=== PATIENT | male | born 1955 | race American Indian/Alaskan Native ===

== ENCOUNTER 2018-01-14 16:00 | Emergency (ER) | payer OTHER ==
[2018-01-14 16:25] LABS: Eosinophils # (Auto) 0.2 K/mm3 (0.0-0.4); Hematocrit 44.7 % (35.5-45.6); Hemoglobin 14.2 gm/dl (11.8-15.2); Lymphocytes # (Auto) 1.5 K/mm3 (1.2-5.4); Mean Corpuscular HGB Conc 32 % (32-34); Mean Corpuscular Volume 71 fl (84-94); Monocytes # (Auto) 0.4 K/mm3 (0.0-0.8); Monocytes % (Auto) 8.2 % (0.0-7.3); Platelet Count 222 K/mm3 (140-440); Red Blood Count 6.31 M/mm3 (3.65-5.03); Red Cell Distribution Width 13.6 % (13.2-15.2)
[2018-01-14 16:27] LABS: Mean Corpuscular Hemoglobin 23 pg (28-32)
[2018-01-14 16:38] LABS: Bilirubin,Urine NEG (Negative); Blood,Urine NEG (Negative); Color,Urine Colorless (Yellow); Mucus,Urine FEW /HPF; Protein,Urine <15 mg/dL mg/dL (Negative); Urobilinogen,Urine < 2.0 mg/dL (<2.0); WBC,Urine < 1.0 /HPF (0.0-6.0)
[2018-01-14 16:42] LABS: RBC,Urine < 1.0 /HPF (0.0-6.0)
[2018-01-14 17:33] LABS: BUN/Creatinine Ratio 7; Blood Urea Nitrogen 6 mg/dL (9-20); Calcium 9.1 mg/dL (8.4-10.2); Hemolysis Index 5
[2018-01-14] MEDS ORDERED: NACL 0.9% 1000 ML 1,000 ML IV ONE (17:58)
[2018-01-14] MEDS ORDERED: K-DUR PO ONE (18:00)
[2018-01-14] MEDS ORDERED: ZESTRIL PO ONE (18:01)
[2018-01-14] MEDS ORDERED: NORMODYNE IV ONE (18:43)
--- NOTE | 2018-01-14 19:11 | Emergency Department Report ---
ED General Adult HPI - General Chief complaint: Hyperglycemia Stated complaint: HIGH GLUCOSE Source: patient Mode of arrival: Ambulatory Limitations: No Limitations - History of Present Illness Initial comments: Patient has had the polys for the last few weeks. He states he went to his doctor a few months ago who told him his diabetes was well controlled although he doesn't have a history of diabetes. Apparently his son is diabetic. He came to the emergency room today for evaluation. He did not take his blood pressure medicine today. He said no recent fever or chills. Does not complain of any chest or abdominal pain or any shortness of breath. He admits to dietary indiscretion with all lot of sugary drinks. -: Gradual, week(s) Severity scale (0 -10): 0 Associated Symptoms: denies other symptoms (except as above indicated) Treatments Prior to Arrival: none - Related Data Previous Rx's Medication Instructions Recorded Last Taken Type metFORMIN [Glucophage] 500 mg PO BID #60 tablet 01/14/18 Unknown Rx Allergies Allergy/AdvReac Type Severity Reaction Status Date / Time No Known Allergies Allergy Unverified 01/14/18 16:03 ED Review of Systems ROS: Stated complaint: HIGH GLUCOSE Other details as noted in HPI Constitutional: denies: chills, fever Eyes: denies: eye pain, eye discharge, vision change ENT: denies: ear pain, throat pain Respiratory: denies: cough, shortness of breath, wheezing Cardiovascular: denies: chest pain, palpitations Endocrine: increased hunger, increased thirst, increased urine Gastrointestinal: denies: abdominal pain, nausea, diarrhea Genitourinary: frequency. denies: urgency, dysuria Musculoskeletal: denies: back pain, joint swelling, arthralgia Skin: denies: rash, lesions Neurological: denies: headache, weakness, paresthesias Psychiatric: denies: anxiety, depression Hematological/Lymphatic: denies: easy bleeding, easy bruising ED Past Medical Hx - Past Medical History Hx Hypertension: Yes - Surgical History Hx Cholecystectomy: Yes Additional Surgical History: ANKLE HERNIA - Social History Smoking Status: Never Smoker Substance Use Type: None - Medications Home Medications: Home Medications Medication Instructions Recorded Confirmed Last Taken Type metFORMIN [Glucophage] 500 mg PO BID #60 tablet 01/14/18 Unknown Rx ED Physical Exam - General Limitations: No Limitations General appearance: alert, in no apparent distress - Head Head exam: Present: atraumatic, normocephalic - Eye Eye exam: Present: normal appearance. Absent: scleral icterus - ENT ENT exam: Present: mucous membranes moist - Neck Neck exam: Present: normal inspection. Absent: tenderness, meningismus - Respiratory Respiratory exam: Present: normal lung sounds bilaterally. Absent: respiratory distress - Cardiovascular Cardiovascular Exam: Present: regular rate, normal rhythm. Absent: systolic murmur, diastolic murmur, rubs, gallop - GI/Abdominal GI/Abdominal exam: Present: soft, normal bowel sounds. Absent: distended, tenderness, guarding, rebound, rigid - Rectal Rectal exam: Present: deferred - Extremities Exam Extremities exam: Present: normal inspection - Back Exam Back exam: Present: normal inspection - Neurological Exam Neurological exam: Present: alert, oriented X3, CN II-XII intact. Absent: motor sensory deficit - Psychiatric Psychiatric exam: Present: normal affect, normal mood - Skin Skin exam: Present: warm, dry, intact, normal color. Absent: rash ED Course Vital Signs 01/14/18 01/14/18 16:04 18:37 Temperature 98.6 F Pulse Rate 85 71 Respiratory 16 Rate Blood Pressure 174/92 Blood Pressure 152/114 [Left] O2 Sat by Pulse 97 100 Oximetry - Reevaluation(s) Reevaluation #1: IV fluids, insulin and labetalol. Patient will be started on an oral agent. He will be encouraged to take his blood pressure medication and follow-up with his primary care provider. 01/14/18 19:09 01/14/18 19:10 ED Medical Decision Making - Lab Data Result diagrams: 01/14/18 16:11 01/14/18 16:11 Laboratory Results - last 24 hr 01/14/18 01/14/18 01/14/18 16:08 16:11 16:11 WBC 5.2 RBC 6.31 H Hgb 14.2 Hct 44.7 MCV 71 L MCH 23 L MCHC 32 RDW 13.6 Plt Count 222 Lymph % (Auto) 28.0 Foster % (Auto) 8.2 H Eos % (Auto) 4.0 Baso % (Auto) 1.0 Lymph # 1.5 Foster # 0.4 Eos # 0.2 Baso # 0.0 Seg Neutrophils % 58.8 Seg Neutrophils # 3.0 VBG pH Sodium 128 L Potassium 3.6 Chloride 90.3 L Carbon Dioxide 24 Anion Gap 17 BUN 6 L Creatinine 0.9 Estimated GFR > 60 BUN/Creatinine Ratio 7 Glucose 553 H* POC Glucose Calcium 9.1 Urine Color Colorless Urine Turbidity Clear Urine pH 6.0 Ur Specific [place] 1.027 Urine Protein <15 mg/dl Urine Glucose (UA) >=500 Urine Ketones Neg Urine Blood Neg Urine Nitrite Neg Urine Bilirubin Neg Urine Urobilinogen < 2.0 Ur Leukocyte Esterase Neg Urine WBC (Auto) < 1.0 Urine RBC (Auto) < 1.0 U Epithel Cells (Auto) < 1.0 Urine Mucus Few 01/14/18 01/14/18 01/14/18 16:11 16:14 18:44 WBC RBC Hgb Hct MCV MCH MCHC RDW Plt Count Lymph % (Auto) Foster % (Auto) Eos % (Auto) Baso % (Auto) Lymph # Foster # Eos # Baso # Seg Neutrophils % Seg Neutrophils # VBG pH 7.358 Sodium Potassium Chloride Carbon Dioxide Anion Gap BUN Creatinine Estimated GFR BUN/Creatinine Ratio Glucose POC Glucose > 500 H 349 H Calcium Urine Color Urine Turbidity Urine pH Ur Specific [place] Urine Protein Urine Glucose (UA) Urine Ketones Urine Blood Urine Nitrite Urine Bilirubin Urine Urobilinogen Ur Leukocyte Esterase Urine WBC (Auto) Urine RBC (Auto) U Epithel Cells (Auto) Urine Mucus Critical care attestation.: If time is entered above; I have spent that time in minutes in the direct care of this critically ill patient, excluding procedure time. ED Disposition Clinical Impression: Essential hypertension Type 2 diabetes mellitus with hyperglycemia Qualifiers: Diabetes mellitus detention insulin use: without superintendent [employer] use Qualified Code(s ): E11.65 - Type 2 diabetes mellitus with hyperglycemia Disposition: DC-01 TO HOME OR SELFCARE Is pt being admited?: No Does the pt Need Aspirin: No Condition: Stable Instructions: Diabetes Mellitus Type 2 in Adults (ED), Hypertension (ED) Additional Instructions: Usual blood pressure medicine. Monitor your blood pressure a few times today. Rx metformin for your diabetes. Dietary modifications and follow up with your primary care physician is very important. Return if any acute change or problem. Prescriptions: metFORMIN [Glucophage] 500 mg PO BID #60 tablet Referrals: JOVANI GARCIA MD [Primary Care Provider] - 2-3 Days Time of Disposition: 19:12
[2018-01-14 20:01] VITALS: BP 152/88
== END 2018-01-14 19:50 | disposition home or self-care (01) ==
LOC: ED 16:00
DX: E11.65 Type 2 diabetes mellitus with hyperglycemia (principal); I10 Essential (primary) hypertension; Z90.49 Acquired absence of other specified parts of digestive tract
CPT/HCPCS: 36415; 80048; 81001; 82805; 82962; 85025; 96361; 96374; 96375; 99284; J7030; J1815